=== PATIENT | male | born 1965 | race Caucasian/White ===

== ENCOUNTER 2019-04-29 14:16 | Outpatient (REF) | payer OTHER, SELFPAY ==
[2019-04-29 22:25] LABS: Hemoglobin A1C 6.2 % (3.8-5.6)
[2019-04-29 22:45] LABS: Anion Gap 12.1 mmol/L (3-11); BUN 17 mg/dL (7-18); CO2 24.9 mmol/L (21.0-32.0); CREATININE 1.06 mg/dL (0.70-1.30); Calcium 9.1 mg/dL (8.5-10.1); Calculated LDL 66 mg/dL; Chloride 103 mmol/L (98-107); Cholesterol 121 mg/dL (<200); Glucose 98 mg/dL (74-106); HDL Cholesterol 32 mg/dL (40-60); Magnesium 1.9 mg/dL (1.8-2.4); Potassium 4.5 mmol/L (3.5-5.1); Sodium 140 mmol/L (136-145); TSH (W/Ref FT4) 1.98 uIU/mL (0.36-3.74); Triglyceride 115 mg/dL (<150); Vitamin B12 653 pg/mL (193-986)
== END 2019-04-29 14:36 ==
LOC: NCHCN 14:16
PROVIDERS: PCP Nurse Practitioner Family; Visit Provider Nurse Practitioner Family
DX: I10 Essential (primary) hypertension (principal); Z00.00 Encounter for general adult medical examination without abnormal findings; K21.9 Gastro-esophageal reflux disease without esophagitis; E66.9 Obesity, unspecified; K42.9 Umbilical hernia without obstruction or gangrene; L98.9 Disorder of the skin and subcutaneous tissue, unspecified; L91.8 Other hypertrophic disorders of the skin
CPT/HCPCS: 80048; 80061; 82607; 83036; 83735; 84443

== ENCOUNTER 2019-06-03 09:34 | Outpatient (REF) | payer OTHER, SELFPAY ==
[2019-06-03 12:43] LABS: Anion Gap 8.6 mmol/L (3-11); BUN 17 mg/dL (7-18); CO2 26.4 mmol/L (21.0-32.0); CREATININE 1.09 mg/dL (0.70-1.30); Calcium 8.8 mg/dL (8.5-10.1); Chloride 106 mmol/L (98-107); Glucose 136 mg/dL (74-106); Potassium 4.6 mmol/L (3.5-5.1); Sodium 141 mmol/L (136-145)
== END 2019-06-03 09:54 ==
LOC: NCHCN 09:34
PROVIDERS: PCP Nurse Practitioner Family; Referring Provider Nurse Practitioner Family; Visit Provider Nurse Practitioner Family
DX: R73.03 Prediabetes (principal); I10 Essential (primary) hypertension; E66.9 Obesity, unspecified
CPT/HCPCS: 80048

== ENCOUNTER 2019-11-22 10:06 | Emergency (ER) | payer OTHER, SELFPAY ==
[2019-11-22 10:10] VITALS: BP 170/92; PULSE 79; TEMP 36.3; O2SAT 97
--- NOTE | 2019-11-22 10:10 | ED.GENADUL_ITS ---
Discharge Plan Disposition Patient Disposition: HOME Condition: Stable Discharge Details Chief Complaint: GenMedical Clinical Impression: Examination for, laboratory Primary Care Provider: Ling Flores ED Provider: Ronny Arias Home Meds and New Rx's Prescriptions: Continued triamcinolone acetonide 0.1 % cream 1 applic TP BID RF: 0 lisinopril 10 mg tablet 10 mg PO DAILY RF: 0 Prilosec OTC 20 mg tablet,delayed release (DR/EC) 20 mg PO DAILY RF: 0 multivitamin Capsule 1 cap PO DAILY RF: 0 bisacodyl [Dulcolax (bisacodyl)] 5 mg tablet,delayed release (DR/EC) 5 mg PO ONCE Qty: 4 RF: 0 polyethylene glycol 3350 17 gram/dose powder 17 g PO ONCE Qty: 238 RF: 0 Discharge Instructions Additional Instructions: Please follow-up with your planned outpatient surgery. Continue all prescribed medications Medical Decision Making 54-year-old male referred by nursing administration after outpatient COVID testing tent was closed. Patient is awaiting outpatient surgery and requires testing today. He has no complaints and is otherwise been well. Culture testing was sent and patient will follow up with planned surgery. HPI General Mode of arrival: ambulatory . Date/Time Provider Initiated Documentation: 11/22/19 10:07 . Limitations to Documentation: no limitations . Information obtained by: patient . History of Present Illness 54 year old M presents to the emergency department with the chief complaint of Referred for preprocedure COVID test, no other complaints, Patient did receive the following treatments prior to arrival, none Related Data Home Medications Medication Instructions Recorded Confirmed lisinopril 10 mg tablet 10 mg PO DAILY 06/17/19 10/28/19 multivitamin 1 cap PO DAILY 06/17/19 10/28/19 omeprazole magnesium 20 mg 20 mg PO DAILY 06/17/19 10/28/19 tablet,delayed release triamcinolone acetonide 0.1 % 1 applic TP BID 06/17/19 10/28/19 topical cream bisacodyl 5 mg tablet,delayed 5 mg PO ONCE #4 tab 11/18/19 release polyethylene glycol 3350 17 17 g PO ONCE #238 gm 11/18/19 gram/dose oral powder Previous Rx's Medication Instructions Recorded bisacodyl 5 mg tablet,delayed 5 mg PO ONCE #4 tab 11/18/19 release polyethylene glycol 3350 17 17 g PO ONCE #238 gm 11/18/19 gram/dose oral powder Allergies Allergy/AdvReac Type Severity Reaction Status Date / Time Penicillins Allergy Unknown Verified 10/28/19 08:33 Review of Systems Narrative: No complaints. [facility] Medical History GERD (gastroesophageal reflux disease) (Chronic) Hypertension (Chronic) Obesity (Chronic) Skin lesion (Acute) Skin tag (Acute) Umbilical hernia (Acute) Family History (Updated 10/28/19 @ 09:23 by Mildred Wong MD) Father Diabetes Metastatic adenocarcinoma Metastatic cancer to liver. Unknown primary Paternal Grandfather Diabetes Mother Hypertension Social History (Updated 10/28/19 @ 08:30 by Mildred Wong MD) Smoking/Tobacco Use Status: Never Alcohol Intake: current Alcohol Intake frequency: a few times a week Details: 2-3 drinks 3-4 days a week Drug use: Never Current gender identity: male Do you feel safe at home: Yes Do you feel safe in your relationship?: Yes Exam Narrative Exam Narrative: GEN: awake, alert, oriented 3. Pleasant, well groomed, interactive. No respiratory distress, speaking in full sentences. Neuro: Grossly normal neurologic exam, conversant, interactive. Psych: Speech fluent, thoughts congruent, affect normal
[2019-11-23 23:37] LABS: COVID-19 RT-PCR Result NEGATIVE (Negative)
== END 2019-11-22 10:24 | disposition home or self-care (01) ==
LOC: ER 10:16
PROVIDERS: Emergency Provider Emergency Medicine; PCP Nurse Practitioner Family
DX: Z11.59 Encounter for screening for other viral diseases (principal); Z01.818 Encounter for other preprocedural examination
CPT/HCPCS: U0003

== ENCOUNTER 2019-11-26 06:25 | Day surgery (SDC) | payer OTHER, SELFPAY ==
[2019-11-26] VITALS (7 sets, daily range): BP systolic 118–147; BP diastolic 80–97; PULSE 60–76; RESP 12–20; TEMP 36.2–36.4; O2SAT 94–96
--- NOTE | 2019-11-26 06:28 | W.PM.OP ---
Date of service: 11/26/19 Time of Service: 08:19 Operative Note Operative Note DATE OF PROCEDURE: 11/26/19 PRE-OP DIAGNOSIS: umbilical hernia POST-OP DIAGNOSIS: same PROCEDURE: Umbilical hernia repair with mesh SURGEON: Mildred Wong SYSTEM DEVELOPMENT MANAGER: Jasmyn Joe ANESTHESIA: GETA (ASA 2/ Brea Rodriguez CRNA) ESTIMATED BLOOD LOSS: 25 PATHOLOGY: none sent COMPLICATIONS: None Patient was transported to: PACU Patient's condition: stable Implants: Ventralex ST Hernia Patch REF [id number] EXP 2021-01-18 Indications: Mr. Wellington also has an umbilical hernia which has been getting larger over the last few years. He denies any pain at this time. He has noted a little discomfort when he coughs or sneezes. He is now applying pressure anytime that he sneezes or coughs. Risks, benefits and complications have been reviewed. Complications include but are not limited to bleeding, pain, infection, injury to underlying structures like bowel and adverse reaction to the medication. Questions were entertained and answered to their satisfaction and they wished to proceed. No guarantees were given or implied. Findings: 2 cm hernia with incarcerated fat Procedure Description: After informed consent was obtained the patient was taken to the operating room and placed in a supine position. Monitors and SCDs were applied and a timeout was done. The patient's name, date of , procedure type, procedure site, allergies to medications, preoperative antibiotic, and DVT prophylaxis were all reviewed. Fire risk was assessed. Next anesthesia did a bilateral rectus block under ultrasound guidance. Please see their separate dictation. Once anesthesia was done the abdomen was prepped and draped in a sterile surgical fashion. 1% Lidocaine was injected into the dermis just under the umbilicus. A 3 cm incision was made with a 10 blade under the umbilicus. Dissection was done with cautery through the subcutaneous tissues and through the umbilical stalk down to the fascia. The hernia defect was identified and measured 2 cm. There was pre-peritoneal fat incarcerated within the hernia sac. The fat and hernia sac were resected at the edge with the fascia. the peritoneum was swept for adhesions. no adhesions were noted. A 3.2 inch round mesh was then placed under the peritoneum and secured in 4 quarters with 2-0 Proline. Once the mesh was secured the tissues were irrigated with some normal saline. No bleeding was identified. The fascia was closed over the mesh with 0 vicryl running suture. 0 Vicryl was used to secure the umbilicus down to the fascia. The subcutaneous tissue was re-approximated with 2-0 vicryl. The dermis was re-approximated with a running 4-0 Vicryl. The skin was cleaned and dried and skin affix was applied. The patient was woken up and taken back to recovery in stable condition. There were no immediate complications. Sponge, instrument and needle counts were correct at the end of the case x2.
--- NOTE | 2019-11-26 06:30 | PDOC.DSDIS_ITS ---
Discharge Plan Disposition Patient Disposition: HOME Condition: Good Discharge Details Reason For Visit: umbilical hernia Attending Provider: Mildred Wong Primary Care Provider: Ling Flores Home Meds and New Rx's Prescriptions: New acetaminophen [Tylenol] 325 mg capsule 650 mg PO Q6H PRN (Reason: fever or pain) Qty: 30 RF: 0 ibuprofen 600 mg tablet 600 mg PO Q6H PRN (Reason: fever or pain) Qty: 60 RF: 0 Continued lisinopril 10 mg tablet 10 mg PO DAILY RF: 0 Prilosec OTC 20 mg tablet,delayed release (DR/EC) 20 mg PO DAILY RF: 0 multivitamin Capsule 1 cap PO DAILY RF: 0 Discontinued bisacodyl [Dulcolax (bisacodyl)] 5 mg tablet,delayed release (DR/EC) 5 mg PO ONCE Qty: 4 RF: 0 polyethylene glycol 3350 17 gram/dose powder 17 g PO ONCE Qty: 238 RF: 0 Discharge Instructions Instructions: Umbilical Hernia Repair (DC) Additional Instructions: Activity at Home after surgery: 1. Make sure you walk outside at least 4 times per day 2. You should be able to climb a flight of stairs 3. No driving while in pain or taking pain medications 4. No strenuous activity or heavy lifting for 4 weeks (open surgery) Diet, Nutrition, & wound healin. Avoid alcohol until after you are recovered from your surgery 2. Make sure to eat plenty of lean protein (meat, fish, eggs, cottage cheese, beans) 3. Eat a variety of fruits and vegetables. Eat plenty of high fiber foods to avoid constipation. 4. Drink plenty of liquids to stay hydrated and avoid constipation Pain Medications: 1. Tylenol 650 mg every 6 hours as needed and Ibuprofen 600 mg every 6 hours as needed. May alternate between the two every 3 hours 2. If a narcotic has been prescribed take as directed only for breakthrough pain For Constipation: 1. Take Milk of Magnesia or MiraLax as needed for constipation Other: 1. You may shower daily. Do not scrub the incisions 2. Do not soak the incisions for 1 week 3. You may alternate ice and heat as needed for pain and swelling Wound Care: 1. Keep the incisions clean and dry Please call our office if you develop: 1. Fevers >101.5 2. Nausea or Vomiting 3. Worsening pain 4. Redness and thick discharge from the wounds If after hours please call the Hospital at and ask to speak to the on-call surgeon Referrals: Mildred Wong MD [ [facility] STAFF PHYSICIAN] - 12/09/19 9:30 am Activity:: No lifting, pulling or pushing >20 lb x 4 weeks Remove Dressings/Wound Care:: Do Not Remove Shower/Bathe:: 24 hours Diet:: As Tolerated Discharge Orders Discharge Orders: Discharge Order (Routine); Ordered 11/26/19 Ordered By: Mildred Wong
[2019-11-26] MEDS: Lactated Ringers 1,000 ML 80 ML IV (07:04)
[2019-11-26] MEDS: Acetaminophen 500 MG TAB 1000 MG PO (07:07)
[2019-11-26] MEDS: Celecoxib 200 MG CAP PO (07:07)
[2019-11-26] MEDS: ceFAZolin 2 GM/50 ML BAG IVPB (07:25)
[2019-11-26] MEDS: Bupivacaine LIPOSOME/PF 133 MG/10 ML VIAL IJ ×2 (07:30)
[2019-11-26] MEDS: Bupivacaine 0.5% Pres-Free 30 ML VIAL (07:30)
[2019-11-26] MEDS: Lidocaine 1% Multi-Dose 50 ML VIAL (08:02)
== END 2019-11-26 10:39 | disposition home or self-care (01) ==
PROVIDERS: PCP Nurse Practitioner Family; Visit Provider Surgery
PROC: (CPT 49585; principal; 2019-11-26 07:30)
DX: K42.9 Umbilical hernia without obstruction or gangrene (principal); G89.18 Other acute postprocedural pain; K21.9 Gastro-esophageal reflux disease without esophagitis
CPT/HCPCS: 49585; 76942; C1781; J0690

== ENCOUNTER 2019-12-08 07:09 | Day surgery (SDC) | payer OTHER, SELFPAY ==
--- NOTE | 2019-12-08 05:51 | HPE_ITS ---
Date of service: 12/08/19 Assessment and Plan Assessment and plan (1) Encounter for colorectal cancer screening: Status: Acute Assessment and plan: 54 year old male here to discuss his first screening colonoscopy. He has no known history of colon cancer although his father had metastatic cancer to his liver and the primary site was never found. He denies any changes in bowel habits, melena, hematochezia. We discussed the colonoscopy prep as well as procedure in detail. P\\ Colonoscopy under sedation Risks, benefits and complications have been reviewed. Complications include but are not limited to bleeding, pain, perforation, missed small lesion/polyp, sore throat, aspiration and adverse reaction to the medications. Questions were entertained and answered to their satisfaction and they wished to proceed. No guarantees were given or implied. History of Present Illness Narrative: Mr. Wellington is a pleasant 54 year old male here to discuss his first screening colonoscopy. He has no family history of colon cancer that he is aware of. His father did pass away from stage IV metastatic cancer to the liver. The primary was never found. He denies any changes in bowel habits, melena, hematochezia, unintentional weight loss. His labs do show that he is a prediabetic with a hemoglobin A1c of 6.8. He is working on weight loss at this time. He also has GERD which is well controlled on omeprazole 20 mg a day. He is active and denies any chest pain or shortness of breath with activity. There have been no changes in his health sincem I saw him in the office. He is s/p umbilical hernia repair. Review of Systems Cardiovascular Cardiovascular: Denies chest pain, Denies chest pain at rest, Denies irregular heart rhythm, Denies dyspnea and Denies dyspnea on exertion Respiratory Respiratory: Reports cough, Denies dyspnea and Denies dyspnea on exertion Gastrointestinal Gastrointestinal: Reports as per HPI Genitourinary Genitourinary: Denies dysuria, Reports urinary incontinence and Denies urinary urgency Endocrine Endocrine: Reports system reviewed and no additional complaints, except as documented Hematologic/Lymphatic Hematologic/Lymphatic: Denies easy bruising and Denies lymphadenopathy [facility] Medical History GERD (gastroesophageal reflux disease) (Chronic) Hypertension (Chronic) Obesity (Chronic) Skin lesion (Acute) Skin tag (Acute) Umbilical hernia (Resolved) Surgical History (Updated 12/08/19 @ 07:25 by Sirena Wing RN) Biceps muscle tear (Acute) Right distal. History of carpal tunnel surgery of right wrist (Acute) History of shoulder surgery (Chronic) Denies having shoulder surgery. History of umbilical hernia repair (Acute ~11/26/19) Hx of knee surgery (Acute) R Knee Family History Father Diabetes Metastatic adenocarcinoma Metastatic cancer to liver. Unknown primary Paternal Grandfather Diabetes Mother Hypertension Social History Smoking/Tobacco Use Status: Never Alcohol Intake: current Alcohol Intake frequency: a few times a week Alcohol type: beer, wine and hard liquor Details: 2-3 drinks 3-4 days a week Drug use: Never Substance use type: does not use Current gender identity: male Do you feel safe at home: Yes Do you feel safe in your relationship?: Yes Meds Home Medications and Allergies Home Medications Medication Instructions Recorded Confirmed Type lisinopril 10 mg tablet 10 mg PO DAILY 06/17/19 12/03/19 History multivitamin 1 cap PO DAILY 06/17/19 12/08/19 History omeprazole magnesium 20 mg 20 mg PO DAILY 06/17/19 12/03/19 History tablet,delayed release acetaminophen [Tylenol] 650 mg PO Q6H PRN #30 cap 11/26/19 12/08/19 Rx ibuprofen 600 mg PO Q6H PRN #60 tab 11/26/19 12/08/19 Rx doxylamine succinate [Unisom 25 mg PO QHS PRN 12/08/19 12/08/19 History (doxylamine)] Allergies Allergy/AdvReac Type Severity Reaction Status Date / Time Penicillins Allergy Unknown Verified 12/08/19 07:25 Exam Const General: healthy appearing and comfortable Resp Effort & Inspection: normal respiratory effort Auscultation: clear to auscultation bilaterally Cardio Rate: regular rate Rhythm: regular rhythm Heart Sounds: no click, no gallops and no murmurs
--- NOTE | 2019-12-08 05:53 | W.PM.DSUDISC ---
Discharge Plan Disposition Patient Disposition: HOME Condition: Good Discharge Details Reason For Visit: Colonoscopy Attending Provider: Mildred Wong Primary Care Provider: Ling Flores Home Meds and New Rx's Prescriptions: Continued lisinopril 10 mg tablet 10 mg PO DAILY RF: 0 Prilosec OTC 20 mg tablet,delayed release (DR/EC) 20 mg PO DAILY RF: 0 multivitamin Capsule 1 cap PO DAILY RF: 0 acetaminophen [Tylenol] 325 mg capsule 650 mg PO Q6H PRN (Reason: fever or pain) Qty: 30 RF: 0 ibuprofen 600 mg tablet 600 mg PO Q6H PRN (Reason: fever or pain) Qty: 60 RF: 0 No Action Unisom (doxylamine) 25 mg Tablet 25 mg PO QHS PRNRF: 0 Discharge Instructions Instructions: Diverticulosis (DC), Colorectal Polyps (DC) Additional Instructions: Findings: 2 small polyps Diverticulosis Follow up: 3-5 years Please call if you develop: fevers >101.5 Nausea or Vomiting Abdominal pain that is not transient DAY SURGERY UNIT POST ENDOSCOPY INSTRUCTIONS 1. Because there will be medication in your system for the next 24 hours, you may feel a little sleepy. Your coordination will be affected. Therefore: a. Do not drive or operate dangerous equipment for 24 hours. b. Do not drink alcohol beverages for 24 hours (not even beer). c. Plan to go home and rest for the day. 2. Generally there are no restrictions on your activity after a day or so has gone by, but you may feel a bit fatigued for a few days. 3 After you arrive home you may have a light meal and return to a normal diet as you can tolerate it without feeling sick to your stomach. 4. After surgery, you may feel pain or discomfort. This should be only transient, but if it persists please contact your doctor. 5. If there are any questions regarding the findings of your procedure, please feel free to contact your doctor. 6. If you are unable to contact your doctor with a problem, contact the hospital at [phone]. 7. Continue all your regular medications unless directed otherwise. I understand the above instructions and have no questions. Signature of Patient or Responsible Adult Escort Date/Time Name of Responsible Adult Escort Signature of Nurse Date/Time Activity:: Activity as Tolerated Diet:: high fiber diet Discharge Orders Discharge Orders: Discharge Order (Routine); Ordered 12/08/19 Ordered By: Mildred Wong DS: Diagnosis Discharge Diagnosis (1) Encounter for colorectal cancer screening: Status: Acute
[2019-12-08 07:12] VITALS: BP 130/89; PULSE 69; RESP 16; TEMP 36.3; O2SAT 95
[2019-12-08] MEDS: Lactated Ringers 1,000 ML 80 ML IV (07:40)
--- NOTE | 2019-12-08 08:30 | BOWEL_PTH ---
PATIENT: Eric Wellington LOC: [facility] U#:[id number] AGE/SX: 54/M ROOM: RE12/08/[address]: Mildred Wong MD : 1965 BED: DIS: 12/08/2019 SPEC #: [id number] RECD: 12/08/19 10:28 STATUS: [facility] REQ #: [id number] CHRISTINE: 12/08/19 08:[address]: Mildred Wong DEPT: Surgical Specimen RECD BY: Billie Ledezma ENTERED: 12/08/19 10:34 SP TYPE: Bowel OTHR DR: Ling Flores Tissues: 1 - BIOPSY BOWEL 2 - BIOPSY BOWEL Procedures: GROSS AND MICRO LEVEL 4 Comments: [id number]
--- NOTE | 2019-12-08 08:49 | W.COLOREPORT ---
Date of service: 12/08/19 Time of Service: 08:11 Colonoscopy Report Date of procedure: 12/08/19 Pre-op diagnosis general: Colon Cancer Screening Post-op diagnosis procedure note: same Procedure: Colonoscopy with polypectomy Surgeon: Mildred Wong Anesthesia proc note operative: other (General/ ASA 2/ Brea Rodriguez, CARLOS) Estimated blood loss (mL): 2 Pathology: other (Transverse colon polyps x2, sigmoid bx) Disposition: same day Indications: Vaughn Powell was seen in the office for a screening colonoscopy Prep: Miralax/Dulcolax Procedure Start Time: :11 Procedure End Time: 08:43 Retraction Time: 19 minutes Findings: Moderate to severe diverticulosis starting in the distal transverse colon 2 small sessile polyps An area of mild inflammation in the sigmoid colon Procedure Description: After informed consent was obtained the patient was taken to the procedure room and placed in a left decubitous position. Monitors were applied and a time out was done. The patients name, date of , procedure, allergies to medications and metal in their body was reviewed. The patient was then sedated. Once sedated and comfortable a rectal exam was done. External exam was normal. Internal exam revealed a normal sphincter tone and no palpable masses. The prostate felt smooth. The scope was then introduced and retro-flexed. No internal hemorrhoids were identified. The scope was then advanced to the cecum without difficulty. The ileocecal valve and appendiceal orifice were identified. The prep was adequate. The scope was then slowly retracted over 19 minutes back into the rectum. Polyps were removed with cold forceps in the transverse colon. There was a small area of inflammation in the sigmoid colon which was biopsied. There was mild diverticulosis of the distal Transverse colon and moderate inflammation of the descending and sigmoid colon. The scope was removed and the patient was woken up and taken back to Same day surgery in stable condition. The patient tolerated the procedure well and there were no immediate complications. Follow up: The patient should follow up in 3-5 years unless they develop changes in bowel habits or other new gastrointestinal complaints.
[2019-12-08 09:19] VITALS: BP 111/86; PULSE 62; RESP 17; TEMP 36.4; O2SAT 97
== END 2019-12-08 09:58 | disposition home or self-care (01) ==
LOC: SUR 07:10
PROVIDERS: PCP Nurse Practitioner Family; Visit Provider Surgery
PROC: 0DJD8ZZ Inspection of Lower Intestinal Tract, Via Natural or Artificial Opening Endoscopic (ICD-10-PCS; CPT 45378; principal; 2019-12-08 08:30)
DX: Z12.11 Encounter for screening for malignant neoplasm of colon (principal); D12.3 Benign neoplasm of transverse colon; K52.89 Other specified noninfective gastroenteritis and colitis
CPT/HCPCS: 45380; 88305; NC; J2704

== ENCOUNTER 2020-07-01 09:37 | Outpatient (REF) | payer OTHER, SELFPAY ==
[2020-07-01 14:26] LABS: Hemoglobin A1C 6.1 % (<5.7)
[2020-07-01 14:55] LABS: ALT 54 U/L (16-63); AST 19 U/L (15-37); Albumin 4.1 g/dL (3.4-5.0); Alkaline Phosphatase 67 U/L (46-116); Anion Gap 8.9 mmol/L (3-11); BUN 13 mg/dL (7-18); Bilirubin, Total 0.7 mg/dL (0.2-1.0); CO2 26.1 mmol/L (21.0-32.0); CREATININE 1.2 mg/dL (0.70-1.30); Calcium 9.4 mg/dL (8.5-10.1); Calculated LDL 64 mg/dL (<100); Chloride 104 mmol/L (98-107); Cholesterol 121 mg/dL (<200); Glucose 101 mg/dL (74-106); HDL Cholesterol 40 mg/dL (40-60); Potassium 4.6 mmol/L (3.5-5.1); Sodium 139 mmol/L (136-145); Total Protein 7.2 g/dL (6.4-8.2); Triglyceride 89 mg/dL (<150); Vitamin B12 610 pg/mL (193-986)
[2020-07-02 10:09] LABS: Hepatitis C Ab w Rflx HCV PCR Negative (Negative)
== END 2020-07-01 09:38 | disposition home or self-care (01) ==
LOC: NCHCN 09:37
PROVIDERS: PCP Nurse Practitioner Family; Visit Provider Nurse Practitioner Family
DX: R73.03 Prediabetes (principal); I10 Essential (primary) hypertension; K52.9 Noninfective gastroenteritis and colitis, unspecified; K21.9 Gastro-esophageal reflux disease without esophagitis; E66.9 Obesity, unspecified; Z11.59 Encounter for screening for other viral diseases
CPT/HCPCS: 80053; 80061; 86803; 82607; 83036; 83735

== ENCOUNTER 2022-05-23 14:16 | Outpatient (REF) | payer OTHER, SELFPAY ==
[2022-05-23 16:37] LABS: ALT 43 U/L (16-63); AST 20 U/L (15-37); Albumin 4.5 g/dL (3.4-5.0); Alkaline Phosphatase 72 U/L (46-116); Anion Gap 9.8 mmol/L (3-11); BUN 16 mg/dL (7-18); Bilirubin, Total 0.4 mg/dL (0.2-1.0); CO2 26.2 mmol/L (21.0-32.0); Calcium 9.4 mg/dL (8.5-10.1); Calculated LDL 72 mg/dL (<100); Chloride 102 mmol/L (98-107); Cholesterol 136 mg/dL (<200); Estimated GFR 89.44 (mL/min/1.73m2); Glucose 111 mg/dL (74-106); HDL Cholesterol 43 mg/dL (40-60); Magnesium 2.1 mg/dL (1.8-2.4); Potassium 4.5 mmol/L (3.5-5.1); Sodium 138 mmol/L (136-145); Total Protein 7.4 g/dL (6.4-8.2); Triglyceride 106 mg/dL (<150); Vitamin B12 604 pg/mL (193-986)
== END 2022-05-23 14:17 | disposition home or self-care (01) ==
LOC: NCHCN 14:16
PROVIDERS: PCP Nurse Practitioner Family; Visit Provider Nurse Practitioner Family
DX: Z00.00 Encounter for general adult medical examination without abnormal findings (principal); F43.20 Adjustment disorder, unspecified; I10 Essential (primary) hypertension; K21.9 Gastro-esophageal reflux disease without esophagitis; R73.03 Prediabetes; K52.9 Noninfective gastroenteritis and colitis, unspecified; E66.8 Other obesity; Z79.899 Other long term (current) drug therapy
CPT/HCPCS: 80053; 80061; 82607; 83735

== ENCOUNTER 2023-12-25 16:26 | Outpatient (REF) | payer OTHER, SELFPAY ==
[2023-12-25 14:58] LABS: Hemoglobin A1C 8.3 % (<5.7)
[2023-12-25 15:18] LABS: ALT 92 U/L (16-63); AST 33 U/L (15-37); Alkaline Phosphatase 80 U/L (46-116); Anion Gap 6.7 mmol/L (3-11); BUN 15 mg/dL (7-18); Bilirubin, Total 0.61 mg/dL (0.2-1.0); CO2 29.3 mmol/L (21.0-32.0); CREATININE 1.1 mg/dL (0.70-1.30); Calcium 9.2 mg/dL (8.5-10.1); Calculated LDL 53 mg/dL (<100); Chloride 102 mmol/L (98-107); Cholesterol 131 mg/dL (<200); Estimated GFR 78.79 (mL/min/1.73m2); Glucose 267 mg/dL (74-106); HDL Cholesterol 32 mg/dL (40-60); Magnesium 1.9 mg/dL (1.8-2.4); Sodium 138 mmol/L (136-145); Total Protein 7.1 g/dL (6.4-8.2); Triglyceride 230 mg/dL (<150); Vitamin B12 722 pg/mL (193-986)
== END 2023-12-25 16:27 | disposition home or self-care (01) ==
LOC: NCHCN 16:26
PROVIDERS: PCP Nurse Practitioner Family; Visit Provider Nurse Practitioner Family
DX: I10 Essential (primary) hypertension (principal); E11.9 Type 2 diabetes mellitus without complications; K21.9 Gastro-esophageal reflux disease without esophagitis
CPT/HCPCS: 80053; 80061; 82607; 83036; 83735

== ENCOUNTER 2024-07-01 12:03 | Outpatient (REF) | payer OTHER, SELFPAY ==
[2024-07-01 14:22] LABS: Abs Immature Grans 0.03 10^3/uL (0.0-0.06); Absolute Basophil Count 0.02 10^3/uL (0.0-0.2); Absolute Eosinophil Count 0.09 10^3/uL (0.0-0.7); Absolute Lymphocyte Count 2.41 10^3/uL (1.2-3.4); Absolute Monocyte Count 0.67 10^3/uL (0.1-0.8); Basophils % 0.3 %; Eosinophils % 1.4 %; HCT 47.8 % (40.0-50.0); HGB 16.4 g/dL (13.5-17.5); Immature Grans % 0.5 %; Lymphocytes % 36.4 %; MCH 30.4 pg (27.0-33.0); MCHC 34.3 % (32.0-36.0); MCV 89 fL (80-95); MPV 12.2 fL (8.0-11.0); Monocytes % 10.1 %; Neutrophils % 51.3 %; Platelet Count 196 10^3/uL (130-400); RBC 5.39 10^6/uL (4.36-5.78); RDW 12.6 % (11.8-14.1); RDW-SD 40.8 fL; WBC 6.62 10^3/uL (4.4-10.8)
[2024-07-01 14:40] LABS: Hemoglobin A1C 6.2 % (<5.7)
[2024-07-01 14:51] LABS: ALT 67 U/L (16-63); AST 28 U/L (15-37); Alkaline Phosphatase 79 U/L (46-116); Anion Gap 11.7 mmol/L (3-11); BUN 13 mg/dL (7-18); Bilirubin, Total 0.7 mg/dL (0.2-1.0); CO2 24.3 mmol/L (21.0-32.0); CREATININE 1.1 mg/dL (0.70-1.30); Calcium 9.6 mg/dL (8.5-10.1); Chloride 105 mmol/L (98-107); Estimated GFR 78.79 (mL/min/1.73m2); Glucose 125 mg/dL (74-106); Potassium 4.6 mmol/L (3.5-5.1); Sodium 141 mmol/L (136-145); Total Protein 7.3 g/dL (6.4-8.2)
[2024-07-02 00:16] LABS: Hepatitis A Antibody IgM Negative (Negative); Hepatitis B Core Antibody Negative (Negative); Hepatitis B surface Ag Negative (Negative); Hepatitis C Ab w Rflx HCV PCR Negative (Negative)
== END 2024-07-01 12:04 | disposition home or self-care (01) ==
LOC: NCHCN 12:03
PROVIDERS: PCP Nurse Practitioner Family; Visit Provider Nurse Practitioner Family
DX: R94.5 Abnormal results of liver function studies (principal)
CPT/HCPCS: 80053; 86704; 86709; 86803; 87340; 83036; 85025

== ENCOUNTER 2024-10-13 09:59 | Day surgery (SDC) | payer OTHER, SELFPAY ==
--- NOTE | 2024-10-12 20:17 | W.PM.DSUDISC ---
Date of service: 10/13/24 Discharge Plan Disposition Patient Disposition: Home Condition: Good Discharge Details Reason For Visit: screening colonoscopy Attending Provider: Anderson Givens Primary Care Provider: Ling Flores Home Meds and New Rx's Prescriptions: Continued Prilosec OTC 20 mg tablet,delayed release (DR/EC) 20 mg PO DAILY multivitamin Capsule 1 cap PO DAILY Ozempic 2 mg/dose (8 mg/3 mL) pen injector 2 mg subcut QWEEK lisinopril 40 mg tablet 40 mg PO DAILY acetaminophen [Tylenol] 325 mg capsule 650 mg PO Q6H PRN (Reason: fever or pain) Qty: 30 0RF ibuprofen 600 mg tablet 600 mg PO Q6H PRN (Reason: fever or pain) Qty: 60 0RF Discharge Instructions Instructions: Colon polyps, Diverticulosis Additional Instructions: Tacho, it was good meeting you today. I hope you feel well after the procedure. Things went very smoothly. I did find, and removed, 3 polyps today. All of these are small, and I suspect they are nothing to worry about. I will send these all off to the pathologist for them to review. Once I know the nature of these polyps, my office will be in touch with recommendations for your next colonoscopy. Incidentally, you also have diverticulosis. Diverticula are little weak spots in the muscular layer of the colon wall, this causes the inside lining to pocket approach outwards. These can get infected or inflamed during flareups that we refer to as diverticulitis. Hopefully, years never bother you. I will attach some basic information here about colon rectal polyps, as well as diverticulosis. If you have any questions at all, please do not hesitate to ask, otherwise we will be in touch once all the results are available. 1. If tolerated, consume a soft, low fiber diet for 1-2 days. [address] Do not drive, drink alcohol, operate machinery, make critical decisions, or do activities that require coordination or balance for 24 hours. 3. Because air was put into your colon during the procedure, expelling air from your rectum (passing gas or farting) is normal. 4. You may not have a bowel movement for 1-3 days because of the colonoscopy prep. This is normal. 5. Go directly to the emergency room if you notice any of the following: Develop chills (warm to touch), or if you have a thermometer and your temperature is above 101 Difficulty breathing or difficultly swallowing Persistent vomiting Severe abdominal pain, other than gas cramps Severe chest pain Black, tarry stools Any bleeding ? exceeding one tablespoon 6. Call your physician if the site where your intravenous was started becomes red, swollen, painful, and warm to touch. 7. Your physician has reviewed your pre-procedure medications. Please continue to take those medications as previously ordered. You will be given specific information/education regarding any changes to your medications before leaving. Activity:: Activity as Tolerated Diet:: As Tolerated Discharge Orders Discharge Orders: Discharge Order (Routine); Ordered 10/12/24 Ordered By: Anderson Givens DS: Diagnosis Discharge Diagnosis (1) Encounter for screening colonoscopy: Status: Acute Asessment and Plan: Follow-up on polypectomy results
--- NOTE | 2024-10-12 20:18 | W.COLOREPORT ---
Date of service: 10/13/24 Time of Service: 12:27 Colonoscopy Report Date of procedure: 10/13/24 Pre-op diagnosis general: screening colonoscopy Post-op diagnosis procedure note: other (Diverticulosis, colon polyps) Procedure: colonoscopy with polypectomy Surgeon: Anderson Givens Anesthesia Type: General:No Airway Estimated blood loss (mL): 5 Pathology: other (0.25 cm flat cecal polyp, 0.25 cm flat polyp at 45 cm, 0.25 cm rectal polyp) Complications: None Disposition: same day Indications: Tacho is a 59 year old man who has a history of adenomatous polyps who needs his next screening colonoscopy Prep: Miralax/Dulcolax Findings: Pandiverticulosis, 0.25 cm flat cecal polyp, 0.25 cm flat polyp at 45 cm, 0.25 cm rectal polyp Procedure Description: After the induction of anesthesia, and with Tacho in left lateral decubitus position, I began by performing an external anorectal exam.? Perineum and skin were normal, as was the anal verge.? There was no evidence of external hemorrhoids.? Next, I performed a digital rectal exam.? I did not appreciate any abnormal findings.? Next, I advanced a colonoscope into the rectal vault.? I performed retroflexion.? This appeared to her low.? Using insufflation, I then advanced the colonoscope beyond the rectal folds and into the sigmoid colon before advancing towards the cecum.? In the upper portion of the rectal vault was a 0.5 cm mostly flat polyp. This is removed with cold forceps with minimal bleeding. I continued advancing through the sigmoid. There is diverticulosis beginning in the sigmoid, and involving all of their segments as well. The scope was noted to be in the cecum by identification of the ileocecal valve and appendiceal orifice.? Within the cecum was a 0.25 cm polyp. This was removed with cold forceps without any issues. I then began withdrawing the colonoscope using repeated irrigation as necessary for full evaluation of the colonic mucosa. Another polyp was found around 45 cm from the anal verge. This was mostly flat. This was also about 0.25 cm, and I removed this with cold forceps. ?Once the scope was withdrawn to the level of the rectum, great care was taken to examine portions of the rectal folds.? Finally, the scope was withdrawn and the patient was brought to the same-day surgery recovery unit as the anesthetic wore off. ?The findings and instructions were shared with the patient prior to discharge. Schlater Bowel Prep Schlater Bowel Prep Right Colon: 2 Left Colon: 2 Transverse Colon: 2 Total Score: 6
[2024-10-13 10:25] VITALS: BP 160/95; PULSE 69; RESP 19; TEMP 36.6; O2SAT 95
--- NOTE | 2024-10-13 10:34 | NUR.NOTE ---
when asked , pt reported that he ate salad and a cheese burger last night at 1800Nursing Note:
[2024-10-13] MEDS: Lactated Ringers 1,000 ML 80 ML IV (10:48)
--- NOTE | 2024-10-13 11:00 | W.ANESPRE ---
General Info Date of Service Date Performed: 10/13/24 Height: 5 ft 8 in Weight: 118.9 kg Body Mass Index (BMI): 39.8 Surgical Procedure: Operation Date: 10/13/24 11:20 Proposed Procedure Side Surgeon rajan Givens MD Meds Allergies and Home Medications Allergies Allergy/AdvReac Type Severity Reaction Status Date / Time Penicillins Allergy Unknown Other (See Verified 10/13/24 10:21 Comment) Home Medication ?Medication ?Instructions ?Recorded multivitamin 1 cap PO DAILY 06/17/19 omeprazole magnesium 20 mg 20 mg PO DAILY 06/17/19 tablet,delayed release (Prilosec OTC) acetaminophen 325 mg capsule 650 mg (2 x 325 mg) PO Q6H PRN 11/26/19 (Tylenol) fever or pain #30 caps ibuprofen 600 mg tablet 600 mg PO Q6H PRN fever or pain 11/26/19 #60 tabs lisinopril 40 mg tablet 40 mg PO DAILY 08/26/24 semaglutide 2 mg/dose (8 mg/3 mL) 2 mg subcut QWEEK 08/26/24 subcutaneous pen injector (Ozempic) Current Visit Medications: Current Medications Generic Name Dose Route Start Last Admin Trade Name Freq PRN Reason Stop Dose Admin Ringer's Solution 1,000 mls @ 80 mls/hr 10/13/24 06:00 10/13/24 10:48 IV 10/13/24 23:59 80 mls/hr INFUSION CASEY Administration IV Miscellaneous Supplies 1 each 10/13/24 06:00 Iv Access IV 10/13/24 23:59 DIRECTED CASEY Ondansetron HCl 4 mg 10/12/24 20:19 Ondansetron 4 Mg/2 Ml Vial IVP 11/11/24 20:18 Q4H PRN PRN Nausea / Vomiting Sodium Chloride 0 ml 10/13/24 06:00 Normal Saline Flush 10 Ml Syr IV 10/13/24 23:59 PRN PRN Sodium Chloride 0 ml 10/13/24 06:00 Normal Saline 10 Ml Vial IJ 10/13/24 23:59 DIRECTED PRN Sterile Water 0 ml 10/13/24 06:00 Water,Injection,Sterile 10 Ml Vial IJ 10/13/24 23:59 DIRECTED PRN PFSH Active Problems Active Problems: Problem Status Onset Code Encounter for screening colonoscopy Acute Z12.11 Tubular adenoma of colon Acute D12.6 Erythema Acute L53.9 Encounter for colorectal cancer screening Acute Z12.11, Z12.12 Medical History Medical History Umbilical hernia Skin lesion Skin tag GERD (gastroesophageal reflux disease) Obesity Hypertension Surgical History Surgical History History of umbilical hernia repair (~11/26/19) Biceps muscle tear Right distal. History of carpal tunnel surgery of right wrist History of shoulder surgery Denies having shoulder surgery. Hx of knee surgery R Knee Tobacco Smoking/Tobacco Use Status: Never Alcohol Alcohol Intake: current Alcohol intake frequency: a few times a week Alcohol type: beer, wine and hard liquor Details: 2-3 drinks 3-4 days a week Substance Use Substance use: Never Substance use type: does not use Vital Signs and Lab Results Vital Signs Most Recent Vital Signs in EMR: Most Recent Vital Signs Temp Pulse Resp BP Pulse Ox 36.6 C 69 19 160/95 H 95 10/13/24 10:25 10/13/24 10:25 10/13/24 10:25 10/13/24 10:25 10/13/24 10:25 Anesthesia Assessment and Plan Anesthesia History Personal History: No History of Anesthesia Complications Family History: No Family History of Anesthesia Complications Exercise Tolerance Exercise Tolerance: Metabolic Equivalents>4 Pertinent Negatives Pertinent Negatives: No Symptoms of GERD Cardiac & Pulmonary Exam Cardiac Exam: Normal S1/S2 Heart Sounds Pulmonary Exam: Clear Bilateral Breath Sounds Implantable Cardiac Device Does patient have a Pacemaker or an ICD?: No Airway Exam Known Difficult Airway: No Mallampati Class: 2 Mouth Opening: Normal (> 3cm) Thyromental Distance: Greater than 3 cm Neck Range of Motion: Full ROM Neck Circumference: Normal Teeth Condition: Normal Dentition ASA Classification ASA Score: ASA 3 Emergency Case?: No NPO Status NPO Status: NPO Clears >2 hours, Solids >8 hours Anesthesia Plan Resuscitation Status: Full Code Anesthesia Technique: General Anesthesia Airway Planned: Natural Airway Monitors Used: Standard Monitors
[2024-10-13 11:03] VITALS: BMI 39.8
--- NOTE | 2024-10-13 11:55 | BOWEL_PTH ---
PATIENT: Eric Wellington LOC: [facility] U#:[id number] AGE/SX: 59/M ROOM: RE10/13/[address]: Anderson Givens MD : [id number] BED: DIS: 10/13/2024 SPEC #: [id number] RECD: 10/13/24 13:14 STATUS: WILTON REQ #: [id number] CHRISTINE: 10/13/24 11:[address]: Anderson Givens DEPT: Surgical Specimen RECD BY: Maria M De La Fuente ENTERED: 10/13/24 13:14 SP TYPE: Bowel OTHR DR: Ling Flores Tissues: 1 - BIOPSY BOWEL 2 - BIOPSY BOWEL 3 - BIOPSY BOWEL Procedures: GROSS AND MICRO LEVEL 4 Comments:
[2024-10-13 12:38] VITALS: BP 105/95; PULSE 69; RESP 16; TEMP 36.3; O2SAT 96
[2024-10-13 12:49] VITALS: BP 138/95; PULSE 78; RESP 19; TEMP 36.2; O2SAT 97
--- NOTE | 2024-10-13 12:57 | W.ANESPOSTOP ---
Postoperative Evaluation Date, Time and Location Date Performed: 10/13/24 Time Performed: 12:57 Patient Location: Day Surgery Unit Vital Signs Most Recent Imported Vital Signs: Most Recent Vital Signs Temp Pulse Resp BP Pulse Ox 36.2 C L 78 19 138/95 H 97 10/13/24 12:49 10/13/24 12:49 10/13/24 12:49 10/13/24 12:49 10/13/24 12:49 Pain Score Most Recent Pain Score: Most Recent Pain Score Pain Level 0 10/13/24 12:49 Assessment Mental Status: Awake (Alert & Oriented to Patient Baseline) Airway and Respiratory Function: Patent airway with normal (patient baseline) respiratory exam Cardiovascular Function: Hemodynamically Stable Hydration Status: Adequately Hydrated Nausea & Vomiting: No Nausea or Vomiting Pain: Pt. Denies Any Pain Peripheral Nerve Block: Patient did not receive a nerve block Teaching Patient Teaching: Discussed Safe Use of Pain Medication Given Recent Anesthesia and Discussed the importance of using CPAP/BiPAP during any sleep period
== END 2024-10-13 10:00 | disposition home or self-care (01) ==
LOC: SUR 10:00
PROVIDERS: PCP Nurse Practitioner Family; Visit Provider Surgery
PROC: 0DJD8ZZ Inspection of Lower Intestinal Tract, Via Natural or Artificial Opening Endoscopic (ICD-10-PCS; CPT 45378; principal; 2024-10-13 11:15)
DX: Z12.11 Encounter for screening for malignant neoplasm of colon (principal); D12.0 Benign neoplasm of cecum; K62.1 Rectal polyp; K57.30 Diverticulosis of large intestine without perforation or abscess without bleeding
CPT/HCPCS: 45380; 88305; J2003; J2704

== ENCOUNTER → 2025-03-03 00:30 | Outpatient (CLI) | payer OTHER, SELFPAY ==
--- NOTE | 2025-03-03 | DI.MRI_ITS ---
Exam(s) MR UPPER JOINT LT WO EXAM: MR UPPER JOINT LT WO CLINICAL HISTORY: PAIN, SWELLING, DISCOLORATION, S46.212A, STRAIN MUSCLE,FASCIA, TENDON. TECHNIQUE: Multiplanar multisequence MRI was performed. COMPARISON: None. FINDINGS: Elbow joint: No joint effusion. No loose bodies. Bones: There is no fracture or contusion pattern. Biceps : There is edema in the distal biceps muscle. There is fluid seen surrounding the distal biceps muscle and tendon. The tendon is torn and retracted several centimeters. Brachialis : Intact. No tendinosis. Common flexor tendons: Intact. No tendinosis. Common extensor tendons: Intact. No tendinosis. Triceps tendon: Intact. No tendinosis. Soft tissues: Unremarkable. IMPRESSION: Tear of the biceps tendon with retraction. Distal biceps muscle tear. DATA REPOSITORY:
== END ==
LOC: DI 00:30
PROVIDERS: PCP Nurse Practitioner Family; Visit Provider Family Medicine
DX: S46.212D Strain of muscle, fascia and tendon of other parts of biceps, left arm, subsequent encounter (principal); X58.XXXD Exposure to other specified factors, subsequent encounter
CPT/HCPCS: 73221

== ENCOUNTER 2025-03-05 15:35 | Outpatient (CLI) | payer OTHER, SELFPAY ==
--- NOTE | 2025-03-05 14:45 | DI.RAD_ITS ---
Exam(s) XR ELBOW LT LIMITED EXAM: XR ELBOW LT LIMITED CLINICAL HISTORY: elbow injury. TECHNIQUE: 2D digital imaging was performed. Three views. COMPARISON: MR MR UPPER JOINT LT WO from 03/03/2025 FINDINGS: BONES: No acute fracture is present. No bony destructive lesion is seen. There is olecranon spurring adjacent corticated bony fragment JOINTS: The elbow is normally aligned. No joint effusion is seen. No joint space narrowing. SOFT TISSUE: Mild swelling posterior to the olecranon. IMPRESSION: Olecranon spur and adjacent bony density with overlying swelling. DATA REPOSITORY: RADIATION DOSE DELIVERED:
== END 2025-03-05 15:36 | disposition home or self-care (01) ==
LOC: DIORS 15:36
PROVIDERS: PCP Nurse Practitioner Family; Visit Provider Physician Assistant
DX: S46.212A Strain of muscle, fascia and tendon of other parts of biceps, left arm, initial encounter (principal); M25.722 Osteophyte, left elbow
CPT/HCPCS: 73070

== ENCOUNTER 2025-03-06 17:57 | Observation (INO) | payer OTHER, SELFPAY ==
[2025-03-06] VITALS (21 sets, daily range): BP systolic 107–166; BP diastolic 72–100; PULSE 64–82; RESP 14–25; TEMP 36.1–36.7; O2SAT 92–97; BMI 38.5
--- NOTE | 2025-03-06 07:16 | W.PM.DSUDISC ---
Date of service: 03/06/25 Discharge Plan Disposition Patient Disposition: Home Condition: Stable Discharge Details Attending Provider: Tarun Bagley Primary Care Provider: Ling Flores Home Meds and New Rx's Prescriptions: New naproxen 250 mg tablet 250 - 500 mg PO BID PRN (Reason: moderate pain and swelling) Qty: 40 0RF oxycodone 5 mg tablet 5 - 10 mg PO .q4-6h MDD 30 mg PRN (Reason: severe pain) Qty: 18 0RF Continued Prilosec OTC 20 mg tablet,delayed release (DR/EC) 20 mg PO DAILY multivitamin Capsule 1 cap PO DAILY Ozempic 2 mg/dose (8 mg/3 mL) pen injector 2 mg subcut QWEEK lisinopril 40 mg tablet 40 mg PO DAILY acetaminophen [Tylenol] 325 mg capsule 650 mg PO Q6H PRN (Reason: fever or pain) Qty: 30 0RF Mounjaro 2.5 mg/0.5 mL pen injector 2.5 mg subcut QWEEK Rx Instructions: for 4 weeks Discontinued ibuprofen 400 mg tablet 400 mg PO Q8H Discharge Instructions Additional Instructions: Surgery: Left distal biceps tendon subacute repair 03/06/25 Activity: Light use hand and fingers okay. Keep elbow bent/ flexed 90 degrees for 2 weeks and then slowly extend to full over the next 4 weeks. Use the sling for support for 6 weeks. Avoid reaching with the elbow straight, lifting more than a couple pounds, or resisted supination of the forearm for 8 weeks. A physical therapy prescription will be sent electronically at follow up to start around 3 weeks postop. CONSERVATIVE protocol for subacute repair of degenerative tendon. PT protocol: Gradual progression to full active range of motion weeks 2–6 Isometrics after 8 weeks Concentric strengthening after 12 weeks Eccentric strengthening after 16 weeks Prescriptions: Naproxen 250 mg take 1-2 every 12 hours with a meal as needed for moderate pain Oxycodone 5 mg take 1-2 every 4-6 hours as needed for severe pain You may use [id number] Tylenol (acetaminophen) as needed for mild pain. These pain medications may be taken all at once or in different combinations as needed. Also, recommend Colace (docusate) as a stool softener as surgery and pain medicine cause constipation. You may try [id number] diphenhydramine (Benadryl) 25-50 mg nightly as a sleep aid Dressings: Leave splint and dressing in place until follow-up. Keep clean and dry at all times. Follow-up: 10-[address] Bagley You may take off the leg compression stockings this evening at home. You may also leave them on a few days longer if you have a history of leg swelling or edema. Let us know right away if you develop any redness, drainage, fevers, chest pain, or trouble breathing. Do not drink alcohol or drive for at least 24 hours after anesthesia. Please call the office during business hours with any questions or concerns. Stand Alone Forms: Portal Information Referrals: Tarun Bagley MD [ [facility] STAFF PHYSICIAN, Orthopaedic Surgical] - 03/17/25 2:15 pm Discharge Orders Discharge Orders: Discharge Order (Routine); Ordered 03/06/25 Ordered By: Radha Espitia DS: Diagnosis Discharge Diagnosis (1) Rupture of left distal biceps tendon: Status: Acute
[2025-03-06] MEDS: Lactated Ringers 1,000 ML 30 ML IV (13:26)
--- NOTE | 2025-03-06 14:24 | ROE_ITS ---
Operative Note Operative Note PRE-OP DIAGNOSIS: Left subacute distal biceps tendon rupture POST-OP DIAGNOSIS: same PROCEDURE: Left distal biceps tendon repair CPT #04397 SURGEON: Tarun Bagley [employer] MECH[employer]IC APPRENTICE: Radha Espitia ANESTHESIA TYPE: Local By Surgeon, General LMA/ETT and Primary Nerve Block Refer to Anesthesia Record ESTIMATED BLOOD LOSS: 10 Patient was transported to: PACU Patient's condition: stable Implants: Arthrex distal biceps button Indications: Please see complete medical record for details. Findings: Significantly retracted scarred adhered and abnormal distal biceps tendon Procedure Description: In the operating room, general anesthesia was induced. The patient was positioned supine on the operating room table. All bony prominences were well- padded. Preoperative antibiotics were administered. The left elbow was prepped and draped in the usual sterile fashion. The correct patient, procedure, and side of the procedure were all verified prior to incision. The radial tuberosity was localized fluoroscopically and preinjected longitudinal incision 0.25 bupivacaine containing epinephrine. A second incision made more proximally over the retracted biceps Papi contour tendon scarring beneath the skin in case it was needed. The incision was opened and careful dissection carried mostly blunt spreading and some sharp moving neurovascular structures appropriately radially and ulnarly with the forearm maintained supination. Some bridging veins had to be ligated. The radial tuberosity was readily localized and nearly devoid of biceps tendon. It was prepared as needed for socket tendon repair and a small wisp of tendon was then followed proximally across the antecubital area to the retracted biceps deformed tendon remnant in the distal arm. Despite numerous attempts to bring this tendon distally and release its adhesions from the distal incision, it was too scarred and retracted so a more proximal second incision was made directly over the most prominent of tendon retraction. The tendon was then freed from significant scarring to subcutaneous tissue fascia and adhesions traveling far ulnarly/medially. Care was taken to release adhesions nearing the tendon to avoid injuring any other structures. Both blunt and sharp dissection was used. The tendon was eventually freed and brought out the proximal incision for inspection. It was significantly abnormal, quite enlarged, and degenerative throughout from the muscle tendon junction through the end of the tendon. There was a small wisp of tendon that was removed and the bulky remainder was then to be used for repair with the very tip only contoured to fit into an 8 mm socket with the remainder used and attempt to have the best tissue fixation after trimming some loose strands. The fiber loop was then used to prepare the tendon with some attempts made to tubularized the abnormal structure and a locking every few passes and doubling back to really secure the abnormal and somewhat poor tendon quality. After completely repairing the tendon the repair suture tails were passed through from the proximal distal incision and with the elbow in only moderate flexion the tendon could fortunately be now reduced to the radial tuberosity without too much trouble. The radial tuberosity was then localized again with fluoroscopic assistance, drilled bicortically with the spade tip drill, and then overdrilled Uni cortically with the 8 mm low-profile reamer, all reamings were copious irrigated to the wound. The socket thoroughly irrigated and confirmed to be in appropriate location and shape and size. The repair suture tails were then loaded on the biceps distal button, which was placed into the socket, through the pin hole on the far cortex, flipped successfully, and then the repair sutures you used in a sliding manner to deliver the tendon to the socket with the elbow and moderate flexion without too much difficulty or tension. The free needle was then used to pass back each tail of the repair in a modified tension slide construct and the final tensioning done with the elbow in about 9 degrees flexion with care taken to ensure all creep and slack removed from the construct before knots were tied securing the repair. The. Excellent strength, there was excellent biceps r estoration contour, and the biceps move well with supination pronation and did not displace or look vulnerable through about full extension. Both wounds were copiously irrigated with normal saline. Hemostasis was achieved with ligation of a few more venous structures distally. Subcutaneous tissue was copiously irrigated. Subcutaneous tissue closed with 2-0 Monocryl buried interrupted. Skin was closed with 3-0 Monocryl running subcuticular. Skin glue applied over the incisions followed by Mepilex bandages. The extremity was placed into a plaster long-arm splint and about 9 degrees of fle xion. There was brisk cap refill throughout the hand, which was also warm and demonstrated excellent triphasic pulse oximeter waveform. The patient awoke from anesthesia without complication and was transferred to the recovery room in a stable condition. Date of Procedure: 03/06/25
--- NOTE | 2025-03-06 14:28 | W.ANESPRE ---
General Info Date of Service Date Performed: 03/06/25 Height: 5 ft 9 in Weight: 118.5 kg Body Mass Index (BMI): 38.5 Surgical Procedure: Operation Date: 03/06/25 14:40 Proposed Procedure Side Surgeon p Bicep Tendon Repair Left Tarun Bagley MD Meds Allergies and Home Medications Allergies Allergy/AdvReac Type Severity Reaction Status Date / Time Penicillins Allergy Unknown Other (See Verified 03/06/25 12:42 Comment) Home Medication Medication Instructions Recorded multivitamin 1 cap PO DAILY 06/17/19 omeprazole magnesium 20 mg 20 mg PO DAILY 06/17/19 tablet,delayed release (Prilosec OTC) acetaminophen 325 mg capsule 650 mg (2 x 325 mg) PO Q6H PRN 11/26/19 (Tylenol) fever or pain #30 caps lisinopril 40 mg tablet 40 mg PO DAILY 08/26/24 semaglutide 2 mg/dose (8 mg/3 mL) 2 mg subcut QWEEK 08/26/24 subcutaneous pen injector (Ozempic) naproxen 250 mg tablet 250 - 500 mg (1 - 2 x 250 mg) PO 03/06/25 BID PRN moderate pain and swelling #40 tabs oxycodone 5 mg tablet 5 - 10 mg (1 - 2 x 5 mg) PO .q4-6h 03/06/25 PRN severe pain #18 tabs tirzepatide 2.5 mg/0.5 mL 2.5 mg subcut QWEEK 03/06/25 subcutaneous pen injector (Mounjaro) Current Visit Medications: Current Medications Generic Name Dose Route Start Last Admin Trade Name Lynne PRN Reason Stop Dose Admin Ringer's Solution 1,000 mls @ 30 mls/hr 03/06/25 06:00 03/06/25 13:26 IV 03/06/25 23:59 30 mls/hr INFUSION CASEY Administration Cefazolin Sodium 3,000 mg/ 100 mls @ 200 mls/hr 03/06/25 06:00 Sodium Chloride IV 03/06/25 23:59 PREOP CASEY Tranexamic Acid/Sodium Chloride 1,000 mg in 100 mls @ 600 mls/hr 03/06/25 06:00 IVPB 03/06/25 23:59 PREOP CASEY IV Miscellaneous Supplies 1 each 03/06/25 06:00 Iv Access IV 03/06/25 23:59 DIRECTED CASEY Oxycodone HCl 0 mg 03/06/25 07:16 Oxycodone 5 Mg Tab PO 04/05/25 07:15 Q3H PRN PRN Pain Sodium Chloride 0 ml 03/06/25 06:00 Normal Saline Flush 10 Ml Syr IV 03/06/25 23:59 PRN PRN Sodium Chloride 0 ml 03/06/25 06:00 Normal Saline 10 Ml Vial IJ 03/06/25 23:59 DIRECTED PRN Sterile Water 0 ml 03/06/25 06:00 Water,Injection,Sterile 10 Ml Vial IJ 03/06/25 23:59 DIRECTED PRN PFSH Active Problems Active Problems: Problem Status Onset Code Rupture of left distal biceps tendon Acute 02/08/25 S46.212A Tubular adenoma of colon Acute D12.6 Erythema Acute L53.9 Medical History Medical History Umbilical hernia Skin lesion Skin tag GERD (gastroesophageal reflux disease) Obesity Hypertension Surgical History Surgical History Hx of colonoscopy with polypectomy (~09/2024) History of umbilical hernia repair (~11/26/19) Biceps muscle tear Right distal. History of carpal tunnel surgery of right wrist History of shoulder surgery Denies having shoulder surgery. Hx of knee surgery R Knee Tobacco Smoking/Tobacco Use Status: Never Passive smoking exposure: No Alcohol Alcohol Intake: current Alcohol intake frequency: a few times a week Alcohol type: beer, wine and hard liquor Details: 2-3 drinks 3-4 days a week Substance Use Substance use: Never Substance use type: does not use Vital Signs and Lab Results Vital Signs Most Recent Vital Signs in EMR: Most Recent Vital Signs Temp Pulse Resp BP Pulse Ox 36.6 C 64 16 166/94 H 95 03/06/25 12:42 03/06/25 12:42 03/06/25 12:42 03/06/25 12:42 03/06/25 12:42 Point of Care Results Point of Care Results: Finger Stick Blood Glucose 97 03/06/25 13:03 Anesthesia Assessment and Plan Anesthesia History Personal History: No History of Anesthesia Complications Family History: No Family History of Anesthesia Complications Exercise Tolerance Exercise Tolerance: Metabolic Equivalents>4 Pertinent Negatives Pertinent Negatives: No Symptoms of GERD, No Major Cardiovascular Symptoms or Complaints, No Major Pulmonary Symptoms or Complaints and No History of CVA/TIA Cardiac & Pulmonary Exam Cardiac Exam: Normal S1/S2 Heart Sounds Pulmonary Exam: Clear Bilateral Breath Sounds Implantable Cardiac Device Does patient have a Pacemaker or an ICD?: No Airway Exam Known Difficult Airway: No Mallampati Class: 2 Mouth Opening: Normal (> 3cm) Thyromental Distance: Greater than 3 cm Neck Range of Motion: Full ROM Neck Circumference: Normal Teeth Condition: Normal Dentition ASA Classification ASA Score: ASA 3 Emergency Case?: No NPO Status NPO Status: NPO Clears >2 hours, Solids >8 hours Anesthesia Plan Resuscitation Status: Full Code Anesthesia Technique: General Anesthesia Airway Planned: Endotracheal Tube Pain Management: Surgeon and patient request nerve block Monitors Used: Standard Monitors
--- NOTE | 2025-03-06 15:17 | W.ANESNERVE ---
Nerve Block Single Injection Procedure Date and Time Date Performed: 03/06/25 Procedure Start: 13:05 Location Where Procedure Performed Procedure Location: Day Surgery Unit Reason Performed: Postoperative Analgesia Requesting Provider: Tarun Bagley Timeout Performed Timeout Performed: Yes Monitoring Used ECG, Blood Pressure, SpO2 and See EMR for corresponding vital signs Sterility Sterility: Hand Hygiene, Surgical Cap, Surgical Mask, Sterile Gloves and Chlorhexidine Sedation Given During Procedure Sedation Given (Indicate Dose Given): No Sedation given Patient Mental Status Patient Mental Status: Awake Nerve Block 1st Nerve Block: Laterality: Left Block Type: Interscalene Ultrasound Image Saved?: Yes Needle / Catheter Used: 100mm SonoPlex II Local Anesthetic Bolus (Indicate Dose Given): Lidocaine used for local infiltration of skin, Injected in 3-5ml increments after negative blood aspiration, Bupivacaine 0.5% Dose:: 10 ml and Exparel Dose:: 10 ml Additives (Indicate Dose Given): Normal Saline Ultrasound: Sterile probe cover and gel used Nerve Stimulator: Supplement to Ultrasound use and No twitch or parasthesia noted < 0.5 mA Paresthesia: Left Paresthesia Duration: Transient (shoulder and in time with stimulator, resolved with reposition of needle. ) Procedure Tolerated: No Complications and Patient tolerated well Procedure Outcome: Successful Performed By: Aubrey Villegas
[2025-03-06] MEDS: ceFAZolin 3,000 MG in Normal Saline 100 ML 200 MG IV (15:43)
[2025-03-06] MEDS: TRANEXAMIC ACID/SOD. CHL. 1,000 MG/100 ML BAG 600 MG IVPB (15:58)
[2025-03-06] MEDS: Bupivacaine 0.25% Pres-Free W/EPI 30 ML VIAL (16:07)
--- NOTE | 2025-03-06 17:28 | DI.RAD_ITS ---
Exam(s) XR ELBOW LT LIMITED EXAM: XR ELBOW LT LIMITED CLINICAL HISTORY: DISTAL BICEPS TENDON RUPTURE. TECHNIQUE: 2D and realtime digital imaging was performed. COMPARISON: CR XR ELBOW LT LIMITED from 03/05/2025 FINDINGS: Hard copy images show placement of a suture anchor at the radial tuberosity related to biceps tendon repair. Please see procedure note for details. Fluoro time: 3.2seconds RADIATION DOSE DELIVERED: Kar=0.9 mGy
--- NOTE | 2025-03-06 18:11 | W.ANESPOSTOP ---
Postoperative Evaluation Date, Time and Location Date Performed: 03/06/25 Time Performed: 18:11 Patient Location: PACU Vital Signs Most Recent Imported Vital Signs: Most Recent Vital Signs Temp Pulse Resp BP Pulse Ox 36.5 C 78 16 107/82 93 03/06/25 18:08 03/06/25 18:06 03/06/25 18:06 03/06/25 18:06 03/06/25 18:06 Pain Score Most Recent Pain Score: Most Recent Pain Score Pain Level 0 03/06/25 14:46 Assessment Mental Status: Awake (Alert & Oriented to Patient Baseline) Airway and Respiratory Function: Abnormal Respiratory exam (See explanation) (SPO2 continues to trend low. Incentive spirometry at bedside, will make doctor Yudi aware and will monitor. ) Cardiovascular Function: Hemodynamically Stable Hydration Status: Adequately Hydrated Nausea & Vomiting: No Nausea or Vomiting Pain: Pt. Denies Any Pain Peripheral Nerve Block: Regional nerve block not resolved at time of post operative discharge
== END 2025-03-06 20:50 ==
LOC: MS 03-09 05:05
PROVIDERS: Admitting Provider Student in an Organized Health Care Education/Training Program; PCP Nurse Practitioner Family; Visit Provider Student in an Organized Health Care Education/Training Program
PROC: (CPT 24341; principal; 2025-03-06 14:30)
DX: S46.212A Strain of muscle, fascia and tendon of other parts of biceps, left arm, initial encounter (principal); G89.18 Other acute postprocedural pain; I10 Essential (primary) hypertension; K21.9 Gastro-esophageal reflux disease without esophagitis; E66.9 Obesity, unspecified; Z68.38 Body mass index [BMI] 38.0-38.9, adult; W21.06XA Struck by volleyball, initial encounter
CPT/HCPCS: 24342; 64415; 76000; 73070; G0378; J0131; J0665; J0666; J0690; J1100; J1885; J2003; J2405; J2704; J3475

== ENCOUNTER 2025-03-18 09:59 | Outpatient (REF) | payer OTHER, SELFPAY ==
[2025-03-18 14:45] LABS: Abs Immature Grans 0.05 10^3/uL (0.0-0.06); HCT 46.8 % (40.0-50.0); HGB 16.1 g/dL (13.5-17.5); Immature Grans % 0.6 %; MCH 30.2 pg (27.0-33.0); MCHC 34.4 % (32.0-36.0); MCV 88 fL (80-95); MPV 11.7 fL (8.0-11.0); Platelet Count 218 10^3/uL (130-400); RBC 5.33 10^6/uL (4.36-5.78); RDW 12.1 % (11.8-14.1); RDW-SD 39.1 fL; WBC 7.86 10^3/uL (4.4-10.8)
[2025-03-18 15:10] LABS: Magnesium 1.8 mg/dL (1.6-2.6)
[2025-03-18 15:24] LABS: ALT 48 U/L (10-49); AST 29 U/L (<34); Albumin 4.5 g/dL (3.2-5.0); Alkaline Phosphatase 74 U/L (46-116); Anion Gap 8.3 mmol/L (3-11); BUN 17 mg/dL (9-23); Bilirubin, Total 0.60 mg/dL (0.2-1.2); CO2 26.7 mmol/L (20.0-31.0); Calcium 10.7 mg/dL (8.3-10.6); Chloride 104 mmol/L (98-107); Cholesterol 123 mg/dL (<200); Glucose 133 mg/dL (74-106); HDL Cholesterol 34 mg/dL (>40); Potassium 4.7 mmol/L (3.5-5.1); Sodium 139 mmol/L (136-145); Total Protein 7.1 g/dL (5.7-8.2); Vitamin B12 531 pg/mL (211-911)
== END 2025-03-18 10:00 | disposition home or self-care (01) ==
LOC: NCHCN 09:59
PROVIDERS: PCP Nurse Practitioner Family; Visit Provider Nurse Practitioner Family
DX: K21.9 Gastro-esophageal reflux disease without esophagitis (principal); K76.0 Fatty (change of) liver, not elsewhere classified; I10 Essential (primary) hypertension
CPT/HCPCS: 80053; 80061; 82607; 83735; 85025

== ENCOUNTER 2025-03-25 11:29 | Outpatient (CLI) | payer OTHER, SELFPAY ==
--- NOTE | 2025-03-25 10:45 | DI.RAD_ITS ---
Exam(s) XR ELBOW LT LIMITED EXAM: XR ELBOW LT LIMITED CLINICAL HISTORY: F/U DISTAL BICEPS REPAIR. TECHNIQUE: 2D digital imaging was performed of the left elbow. Two images were obtained. AP and lateral views were obtained. COMPARISON: CR XR ELBOW LT LIMITED from 03/05/2025 XA XR ELBOW LT LIMITED from 03/06/2025 FINDINGS: BONES: No acute fracture is present. No bony destructive lesion is seen. There again seen postsurgical changes of a biceps tendon repair. There is an enthesophyte at the olecranon. There is a well corticated osseous density adjacent to the olecranon which is old. JOINTS: The elbow is normally aligned. No joint effusion is seen. SOFT TISSUE: Normal. IMPRESSION: Status post biceps tendon repair. No acute abnormality. DATA REPOSITORY: RADIATION DOSE DELIVERED:
== END 2025-03-25 11:30 | disposition home or self-care (01) ==
LOC: DIORS 11:29
PROVIDERS: PCP Nurse Practitioner Family; Visit Provider Student in an Organized Health Care Education/Training Program
DX: S46.212A Strain of muscle, fascia and tendon of other parts of biceps, left arm, initial encounter (principal)
CPT/HCPCS: 73070